=== PATIENT | male | born 2000 | race African-American/Black ===

== ENCOUNTER 2018-06-07 10:29 | Emergency (ER) | payer OTHER ==
[~2018-06-07] VITALS: Ht 182.9 cm; Wt 86.2 kg
[2018-06-07 10:31] VITALS: BP 110/49
[2018-06-07] MEDS ORDERED: ERYTHROMYCIN E3.5 G3 OPHTHALMIC (10:48)
== END 2018-06-07 10:57 | disposition home or self-care (01) ==
LOC: ER 10:29
DX: T78.40XA Allergy, unspecified, initial encounter (principal); X58.XXXA Exposure to other specified factors, initial encounter